=== PATIENT | female | born 1985 | race Two or more races ===

== ENCOUNTER 2022-03-23 10:58 | Emergency (ER) | payer MEDICAID ==
[~2022-03-23] VITALS: Ht 177.8 cm; Wt 68.2 kg
[2022-03-23 11:20] VITALS: BP 111/90
--- NOTE | 2022-03-23 11:27 | NUR ---
after triage was completed, pt stated "you know what, nevermind, i'm leaving." pt educated about the risks of leaving as pt may have an infection in her tooth or jaw as indicated by the severe swelling noted. pt responded "i'm aware of what can happen. I already know." pt then walked out of triage and left.
== END 2022-03-23 11:51 | disposition left against medical advice (07) ==
LOC: ER 10:59
DX: R22.0 Localized swelling, mass and lump, head (principal); Z53.21 Procedure and treatment not carried out due to patient leaving prior to being seen by health care provider

== ENCOUNTER 2022-05-08 15:02 | Emergency (ER) | payer MEDICAID ==
[~2022-05-08] VITALS: Ht 177.8 cm; Wt 65.9 kg
[2022-05-08] MEDS ORDERED: azithromycin 250mg tablet PO ONE (20:20)
[2022-05-08] MEDS ORDERED: CefTRIAXone 500MG IM Kit w/LIDOcaine (for pt below or = to 150kg) IM ONE (20:20)
[2022-05-08] MEDS ORDERED: LEVONORGESTREL 1.5MG tablet 1.5 MG TABLET PO ONE (20:20)
[2022-05-08] MEDS ORDERED: TINIDAZOLE 500 MG TABLET PO ONE (20:20)
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
[2022-05-09 00:45] VITALS: BP 110/73
== END 2022-05-08 23:25 | disposition home or self-care (01) ==
LOC: ER 15:03
DX: T74.21XA Adult sexual abuse, confirmed, initial encounter (principal); F17.200 Nicotine dependence, unspecified, uncomplicated; F15.20 Other stimulant dependence, uncomplicated; Z88.5 Allergy status to narcotic agent; Z98.51 Tubal ligation status; Z59.00 Homelessness unspecified
CPT/HCPCS: 96372; 99284; J0696

== ENCOUNTER 2022-05-10 16:48 | Emergency (ER) | payer MEDICAID ==
[~2022-05-10] VITALS: Ht 177.8 cm; Wt 160.0 kg
[2022-05-10 16:58] VITALS: BP 138/97
== END 2022-05-10 17:42 ==
LOC: ER 16:48
DX: F15.20 Other stimulant dependence, uncomplicated; Z88.5 Allergy status to narcotic agent; Z98.51 Tubal ligation status; Z59.00 Homelessness unspecified
CPT/HCPCS: 99283